=== PATIENT | male | born 1935 | race Caucasian/White ===

== ENCOUNTER 2018-07-26 19:07 | Emergency (ER) | payer OTHER ==
[2018-07-26 19:24] VITALS: BP 171/89
--- NOTE | 2018-07-26 19:28 | EDPHY ---
H & P Stated Complaint: pt c/o dry mouth Time Seen by Provider: 07/26/18 19:18 HPI/ROS: CHIEF COMPLAINT: Dry mouth HISTORY OF PRESENT ILLNESS: The patient is an 83-year-old man who comes to the emergency depart with his neighbor complaining of dry mouth. He states that he has had dry mouth for the last couple of months. He states that he continue is drinking water and his dentist recommended Biotin. He has not had any recent changes in his medications. No fevers. No nausea vomiting. No chest pain. No shortness of breath. He does have a history of COPD but states that this is his baseline. He called his neighbor today and was talking about it and his neighbor was concerned about allergic reactions so brought him to the ER. He does not have any swelling of his tongue her airway. No rashes. Severity: Moderate Modifying factors: None REVIEW OF SYSTEMS: Constitutional: denies: chills, fever, recent illness, recent injury EENTM: denies: blurred vision, double vision, nose congestion Respiratory: denies: cough, shortness of breath Cardiac: denies: chest pain, irregular heart rate, lightheadedness, palpitations Gastrointestinal/Abdominal: denies: abdominal pain, diarrhea, nausea, vomiting, blood streaked stools Genitourinary: denies: dysuria, frequency, hematuria, pain Musculoskeletal: denies: joint pain, muscle pain Skin: denies: lesions, rash, jaundice, bruising Neurological: denies: headache, numbness, paresthesia, tingling, dizziness, weakness Hematologic/Lymphatic: denies: blood clots, easy bleeding, easy bruising Immunologic/allergic: denies: HIV/AIDS, transplant 10 systems reviewed and negative except as noted EXAM: GENERAL: Well-appearing, well-nourished and in no acute distress. HEAD: Atraumatic, normocephalic. EYES: Pupils equal round and reactive to light, extraocular movements intact, sclera anicteric, conjunctiva are normal. ENT: TMs normal, nares patent, oropharynx clear without exudates. Dry mucous membranes. NECK: Normal range of motion, supple without lymphadenopathy or JVD. LUNGS: Breath sounds clear to auscultation bilaterally and equal. No wheezes rales or rhonchi. HEART: Regular rate and rhythm without murmurs, rubs or gallops. ABDOMEN: Soft, nontender, normoactive bowel sounds. No guarding, no rebound. No masses appreciated. BACK: No CVA tenderness, no spinal tenderness, step-offs or deformities EXTREMITIES: Normal range of motion, no pitting or edema. No clubbing or cyanosis. NEUROLOGICAL: Cranial nerves II through XII grossly intact. Normal speech, normal gait. 5/5 strength, normal movement in all extremities, normal sensation , normal reflexes PSYCH: Normal mood, normal affect. SKIN: Slight tenting, Warm, dry, normal turgor, no visible rashes or lesions. Source: Patient Exam Limitations: No limitations - Personal History Current Tetanus Diphtheria and Acellular Pertussis (TDAP): No Tetanus Vaccine Date: 10/31/11 - Medical/Surgical History Hx Asthma: No Hx Chronic Respiratory Disease: Yes Hx Diabetes: No Hx Cardiac Disease: Yes Hx Renal Disease: No Hx Cirrhosis: No Hx Alcoholism: No Hx HIV/AIDS: No Hx Splenectomy or Spleen Trauma: No Other PMH: HTN, COPD, HYPOTHYROID, GI bleed, prostate problems, copd - Family History Significant Family History: No pertinent family hx - Social History Smoking Status: Former smoker Alcohol Use: Sober Drug Use: None Constitutional: Initial Vital Signs Temperature (C) 36.9 C 07/26/18 19:20 Heart Rate 74 07/26/18 19:20 Respiratory Rate 18 07/26/18 19:20 Blood Pressure 171/89 H 07/26/18 19:20 O2 Sat (%) 95 07/26/18 19:20 O2 Delivery Mode Room Air Allergies/Adverse Reactions: No Known Allergies Allergy (Unverified 10/31/11 15:06) Home Medications: Medication Instructions Recorded NIFEDIPINE [PROCARDIA XL] 30 mg PO DAILY@10/31/11 Simvastatin [Zocor] 80 mg PO DAILY@10/31/11 Tamsulosin HCl 0.4 mg PO DAILY@10/31/11 Zolpidem Tartrate [Ambien 5MG (*)] 10 mg PO HS 10/31/11 Cholecalciferol Vit D3 [Vitamin D3 1,000 units PO DAILY@18 10/28/15 (*)] Fluticasone/Salmeter 500/50Mcg 1 puffs IH BID 10/28/15 [Advair 500/50 (*)] Furosemide [Lasix 20 MG (*)] 20 mg PO DAILY 10/28/15 Levothyroxine [Synthroid 75 mcg 75 mcg PO DAILY06 10/28/15 (*)] Tears/Hypromellose [Natural 1 - 2 drops RTEYE HS 10/28/15 Balance] Ferrous Sulfate [Ferrous Sulf 325 325 mg PO DAILY #30 tab 10/30/15 MG (*)] Pantoprazole Sodium [Protonix] 40 mg PO BID #120 tab 10/30/15 Pantoprazole Sodium [Protonix 40mg 40 mg PO DAILY #30 tab 02/01/16 (*)] Medical Decision Making ED Course/Re-evaluation: The patient is hydrating orally. He has not had diarrhea nausea vomiting. He is on 3 medications that can cause dry mouth. Mirtazapine, zolpidem and gabapentin. This is been ongoing for several months. Encouraged him to talk with his primary doctor about adjusting his medications. I do not see any evidence of allergic reaction. No swelling in his mouth or airway. No stridor. No wheezing. No rash. No GI symptoms. I did perform an EKG which is reassuring. Patient at this point declines further workup or testing. We discussed with him and his neighbor indications for returning to the ER. His daughter will stay with him tonight. He declines IV hydration as he is able to tolerate p.o.. Differential Diagnosis: Partial list of the Differential diagnosis considered include but were not limited to; the dry mouth, medication reaction, dehydration and although unlikely based on the history and physical exam, I also considered electrolyte abnormality, allergic reaction, acute coronary disease, COPD exacerbation. I discussed these differential diagnoses and the plan with the patient as well as the usual and expected course. The patient understands that the diagnosis is provisional and that in medicine we are not always correct and that further workup is often warranted. Usual and customary warnings were given. All of the patient's questions were answered. The patient was instructed to return to the emergency department should the symptoms at all worsen or return, otherwise to followup with the physician as we discussed. Departure - Departure Disposition: Home, Routine, Self-Care Clinical Impression: Dry mouth Condition: Fair Instructions: Mouthwash (Into the mouth), Dry Mouth (ED) Additional Instructions: Follow follow-up with Dr. Morelos about your chronic dry mouth. Your 3 medications that can cause dry mouth, Mirtazapine, zolpidem, and gabapentin. He may consider adjusting some of these medications. Also continue to use Biotin as your dentist recommended. Return to the emergency department if he develops any chest pain or difficulty breathing or swelling of your mouth. Referrals: Brien Pitts, DO [Primary Care Provider] - 2-3 days, if not improved
== END 2018-07-26 19:52 | disposition home or self-care (01) ==
DX: R68.2 Dry mouth, unspecified (principal); I10 Essential (primary) hypertension; J44.9 Chronic obstructive pulmonary disease, unspecified; E03.9 Hypothyroidism, unspecified